=== PATIENT | female | born 2000 | race Caucasian/White ===

== ENCOUNTER 2024-12-11 21:30 | Emergency (ER) | payer MEDICAID ==
[~2024-12-11] VITALS: Ht 152.4 cm; Wt 64.9 kg
[2024-12-11 21:36] VITALS: TEMP 98.1
[2024-12-11 22:33] LABS: BASOPHILS % (AUTO) 0.2 % (0-1); EOSINOPHILS % (AUTO) 0.3 % (0-6); HEMATOCRIT 43.9 % (35.0-45.0); HEMOGLOBIN 14.9 g/dl (12.0-16.0); LYMPHOCYTES # (AUTO) 1.2 X10'3 (1.1-4.8); LYMPHOCYTES % (AUTO) 9.5 % (21-51); MEAN CORPUSCULAR HEMOGLOBIN 25.9 PG (27.0-31.0); MEAN CORPUSCULAR HGB CONC 33.8 g/dL (33.0-36.5); MEAN CORPUSCULAR VOLUME 76.7 FL (78-98); MEAN PLATELET VOLUME 8.4 FL (7.4-10.4); MONOCYTES # (AUTO) 0.9 X10'3 (0-0.9); MONOCYTES % (AUTO) 7.4 % (2-12); NEUTROPHILS # (AUTO) 10.2 X10'3 (1.8-7.7); NEUTROPHILS % (AUTO) 82.6 % (42-75); PLATELET COUNT 197 X10'3 (140-440); RED BLOOD COUNT 5.73 X10'6 (4.20-5.60); RED CELL DISTRIBUTION WIDTH 13.8 % (11.5-14.5); WHITE BLOOD COUNT 12.4 X10'3 (4.5-11.0)
[2024-12-11 22:50] LABS: ALANINE AMINOTRANSFERASE 23 U/L (12-78); ALBUMIN/GLOBULIN RATIO 1.1 (1.1-1.5); ALKALINE PHOSPHATASE 95 IU/L (46-116); ANION GAP 9 (8-16); ASPARTATE AMINO TRANSFERASE 18 U/L (10-37); BILIRUBIN,TOTAL 0.6 MG/DL (0.1-1.0); BLOOD UREA NITROGEN 17 MG/DL (7-18); CALCIUM 8.9 MG/DL (8.5-10.1); CHLORIDE 104 MMOL/L (99-107); CREATININE 0.85 MG/DL (0.40-0.90); GLUCOSE 105 MG/DL (70-104); LIPASE 23 U/L (16-77); POTASSIUM 4.4 MMOL/L (3.5-5.1); SODIUM 142 MMOL/L (135-145); TOTAL CARBON DIOXIDE 28.7 MMOL/L (24-32); TOTAL PROTEIN 7.6 G/DL (6.4-8.2); eCRCL 75 ML/MIN; eGFR 84 ML/MIN
[2024-12-11 23:06] LABS: MICROCYTOSIS FEW; PLATELET ESTIMATE NORMAL
[2024-12-11 23:42] LABS: HCG SERUM QL NEGATIVE
[2024-12-12 00:46] VITALS: BP 102/52; PULSE 67; O2SAT 99
[2024-12-12 00:50] LABS: BILIRUBIN,URINE SMALL (Neg); CLARITY,URINE CLEAR (Clear); COLOR,URINE YELLOW (Yellow); GLUCOSE, URINE NEGATIVE (Neg); KETONES,URINE 15 mg/dl (Neg); LEUKOCYTE ESTERASE ,URINE SMALL (Neg); NITRITES, URINE NEGATIVE (Neg); OCCULT BLOOD,URINE NEGATIVE (Neg); PROTEIN,URINE TRACE mg/dl (Neg); UROBILINOGEN,URINE 0.2 E.U/dL (0.2-1.0)
[2024-12-12 01:13] LABS: MUCUS STRANDS MANY /LPF (Neg); SQUAMOUS EPITHELIAL CELL,UR MODERATE /LPF (FEW); UA COLLECTION TYPE CLN CATCH MIDSTREAM
[2024-12-12 01:14] LABS: BACTERIA,URINE FEW /HPF (Neg); RBC,URINE 0-2 /HPF (0-2); WBC CLUMPS,URINE FEW /HPF (NEGATIVE)
[2024-12-12] MEDS: ondansetron/PF 4mg/2ml inj IV ONE (01:59)
[2024-12-12] MEDS: ketorolac trometh 30MG/ML vial 30 MG/ML VIAL IV ONE (02:00)
[2024-12-12] MEDS: normal saline 1000ml 1,000 ML IV ONE (02:06)
[2024-12-12] MEDS ORDERED: CEPH-585 PO (02:48)
--- NOTE | 2024-12-12 02:48 | Physician Documentation ---
History of Present Illness Chief Complaint: Abdominal Pain Stated Complaint: ABD PAIN Time Seen by MD: 23:13 Source: patient Mode of Arrival: POV Exam Limitations: no limitations HPI Otherwise healthy female in with mild suprapubic and epigastric pain today and some vomiting. No diarrhea or constipation. No history of surgery. Medication Reconciliation Allergies: Uncoded Allergies: PEROXIDE (Allergy, Mild, rash, 12/11/24) Scheduled Cephalexin*Monohydrate* (Keflex*), 1 CAP PO BID Past Medical History Past Medical History: No Pertinent History Smoking Status: Unknown if ever smoked Review of Systems All Other Systems at this time: Reviewed and Negative Physical Exam Vital Signs: Temperature: 98.1, Source: Temporal, Heart Rate: 67, Respiratory Rate: 15, BP: 102/52, Pulse Oximetry: 99, Weight: 64.900 Oxygen Flow Rate: 0 Physical Exam General: Alert and oriented x4, well-appearing, well-nourished, no acute distress HEENT: Normocephalic, atraumatic, no visible or palpable masses or depression, extraocular movements intact, PERRLA, no scleral icterus, Heart: Regular rate and rhythm, Lungs: Clear , normal work of breathing Abdomen: Soft, trace suprapubic and epigastric tenderness , no palpable masses, normal bowel sounds Extremities: Full range of motion, no acute deformity, Musculoskeletal: Normal gait, normal tone Neurologic: Cranial nerves 2-12 are intact, Psychiatric: Alert and oriented x4, judgment and insight normal, normal mood and affect Skin: Good turgor, no rashes Progress Results/Orders Results/Orders Orders - JAILENE TOSCANO MD Straight Cath For Urine Sample (12/11/24 22:01) Cult Urine + [address] (12/12/24 01:15) Completed Orders - JAILENE TOSCANO MD Cbc/Diff (12/11/24 22:01) BMP (12/11/24 22:01) Lipase (12/11/24 22:01) CMP (12/11/24 22:01) Hcg Serum Ql (12/11/24 23:14) Ua W/Microscopic, Cult If Ind (12/12/24 00:40) Normal Saline 1000ml (Sodium Chloride 10 (12/12/24 01:30) Ondansetron Inj. (Zofran 4mg/2ml Vial) (12/12/24 01:30) Ketorolac Trometh 30mg/Ml Vial (Toradol (12/12/24 01:35) Medications Received in ER Medications (Trade) Dose Ordered Sig/Anastacio Route PRN Reason Start Time Stop Time Status Last Admin Dose Admin Sodium Chloride 1,000 ml @ 1,000 mls/hr ONCE ONCE IV 12/12/24 01:30 12/12/24 02:29 DC 12/12/24 02:06 1,000 MLS/HR (Zofran 4mg/2ml vial) 4 mg ONCE ONCE IV 12/12/24 01:30 12/12/24 01:32 DC 12/12/24 01:59 4 MG (Toradol inj. 30mg/ml) 30 mg ONCE ONCE IV 12/12/24 01:35 12/12/24 01:36 DC 12/12/24 02:00 30 MG Vital Signs 12/11/24 12/12/24 12/12/24 21:36 00:46 02:00 Temp 98.1 Pulse 106 67 Resp 18 14 15 B/P (MAP) 117/64 102/52 (69) Pulse Ox 97 99 O2 Flow Rate 0 Laboratory Tests Test 12/11/24 22:23 12/12/24 00:40 White Blood Count 12.4 H Red Blood Count 5.73 H Hemoglobin 14.9 Hematocrit 43.9 Mean Corpuscular Volume 76.7 L Mean Corpuscular Hemoglobin 25.9 L Mean Corpuscular Hemoglobin Concent 33.8 Red Cell Distribution Width 13.8 Platelet Count 197 Mean Platelet Volume 8.4 Neutrophils (%) (Auto) 82.6 H Lymphocytes (%) (Auto) 9.5 L Monocytes (%) (Auto) 7.4 Eosinophils (%) (Auto) 0.3 Basophils (%) (Auto) 0.2 Neutrophils # (Auto) 10.2 H Lymphocytes # (Auto) 1.2 Monocytes # (Auto) 0.9 Eosinophils # (Auto) 0.0 Basophils # (Auto) 0.0 CBC Comment Platelet Estimate Normal Red Blood Cell Morphology Perf Basophilic Stippling Microcytosis Few Sodium Level 142 Potassium Level 4.4 Chloride Level 104 Carbon Dioxide Level 28.7 Anion Gap 9 Blood Urea Nitrogen 17 Creatinine 0.85 Estimated GFR/1.73 m2 84 BUN/Creatinine Ratio 20.0 Glucose Level 105 H Calcium Level 8.9 Total Bilirubin 0.6 Aspartate Amino Transf (AST/SGOT) 18 Alanine Aminotransferase (ALT/SGPT) 23 Alkaline Phosphatase 95 Total Protein 7.6 Albumin 4.0 Globulin 3.6 Albumin/Globulin Ratio 1.1 Lipase 23 Human Chorionic Gonadotropin, Qual Negative Chemistry Comments Urine Specimen Description Cln catch midstream Urine Color Yellow Urine Clarity Clear Urine pH 6.0 Urine Specific [place] 1.025 Urine Protein Trace Urine Glucose (UA) Negative Urine Ketones 15 H Urine Occult Blood Negative Urine Nitrite Negative Urine Bilirubin Small Urine Urobilinogen 0.2 Urine Leukocyte Esterase Small H Urine RBC 0-2 Urine WBC 10-20 H Urine WBC Clumps Few Urine Squamous Epithelial Cells Moderate Urine Bacteria Few Urine Mucus Many Urine Culture Indicated Indicated Volume Urine Centrifuged 10 ml Urine Comment Microbiology Date/Time Source Procedure Growth Status 12/12/24 01:15 Urine Clean Catch Midstream Urine Culture - Preliminary Culture received. Resulted Medical Decision Making Additional Comments Differential includes but is not limited to: Urinary tract infection, gastroenteritis, dehydration, electrolyte derangement, Departure Disposition: 01 HOME / SELF CARE / HOMELESS Impression: Primary Impression: Acute urinary tract infection Additional Impression Text CBC a slight leukocytosis and chemistry unremarkable. Urine shows possible UTI. Patient feeling better after Zofran and fluids. Placing her on Keflex and urine culture is pending. Discharged home in good condition with care instructions. Follow up if not improving or if new or worsening symptoms. Condition: Improved Discharge Instructions: Urinary Tract Infection, Adult Additional Instructions: Follow-up if not improving or if new or worsening symptoms. Complete your antibiotics. Referrals: NO PRIMARY CARE PROVIDER (PCP) Prescriptions Cephalexin*Monohydrate* (Keflex*) 500 Mg Capsule 1 CAP PO BID, #14 CAP Prov: JAILENE TOSCANO MD 12/12/24 Education Educated: Patient Educated regarding: diagnosis, treatment, prognosis, need for follow up Signature Scribe Signature: No scribe Attestation: No scribe JAILENE TOSCANO MD Dec 12, 2024 02:48
[2024-12-12] MEDS: cephalexin 500mg capsule PO ONE (02:59)
[2024-12-12 03:04] VITALS: RESP 13
== END 2024-12-12 03:16 | disposition home or self-care (01) ==
LOC: ER 21:32
DX: N39.0 Urinary tract infection, site not specified (principal)
CPT/HCPCS: 36415; 80053; 81001; 83690; 84703; 85008; 85025; 87088; 96361; 96374; 96375; 99284; J1885; J2405; J7030; A6402